=== PATIENT | female | born 1995 | race Caucasian/White ===

== ENCOUNTER 2021-11-27 18:28 | Inpatient (IN) | payer BC ==
[~2021-11-27 18:28] MED LIST: Bupivacaine 0.25% HCL 30 ML VIAL ONE
[2021-11-27] MEDS ORDERED: Lidocaine 1% (PF) 30 ML VIAL SC PRN (18:50)
[2021-11-27] MEDS ORDERED: HYDROcodone/Acetaminophen 5/325 mg Tablet PO PRN ×2 (18:50)
[2021-11-27] MEDS ORDERED: Butorphanol Tartrate 1 MG/ML VIAL SLOW IVP PRN (18:50)
[2021-11-27] MEDS ORDERED: Ondansetron PF 4 MG/2 ML Vial IVP PRN (18:50)
[2021-11-27] MEDS ORDERED: Diphenoxylate HCl/Atropine Tablet PO PRN ×2 (18:50)
[2021-11-27] MEDS ORDERED: Promethazine HCl 25 MG/ML VIAL IM PRN (18:50)
[2021-11-27] MEDS ORDERED: Acetaminophen 500 MG TAB PO PRN (18:50)
[2021-11-27] MEDS ORDERED: Misoprostol 200 MCG TAB PR PRN (18:50)
[2021-11-27] MEDS ORDERED: hydrALAZINE 20 MG/ML VIAL SLOW IVP PRN (18:50)
[2021-11-27] MEDS ORDERED: Ibuprofen 800 MG TAB PO PRN (18:50)
[2021-11-27] MEDS ORDERED: Labetalol HCl 100 MG/20 ML VIAL SLOW IVP PRN (18:54)
[2021-11-27] MEDS ORDERED: Calcium Gluc 4.6 MEQ/10 ML (100 MG/ML) SLOW IVP PRN (18:54)
[2021-11-27] MEDS ORDERED: Lorazepam 2 MG/ML VIAL SLOW IVP PRN (18:54)
[2021-11-27] MEDS ORDERED: NS w/ Oxytocin 30 units 500 ML IV SCH ×2 (19:00)
[2021-11-27 19:46] LABS: Hemoglobin 10.3 g/dL (12.0-15.5); Mean Corpuscular HGB CONC 34.7 g/dL (32.0-36.0); Mean Corpuscular Hemoglobin 30.2 pg (27.0-33.0); Mean Corpuscular Volume 87.1 fl (81.6-98.3); Mean Platelet Volume 10.8 fl (7.4-10.4); Platelet Count 225 10x3/uL (150-450); RBC Distribution Width 12.6 % (11.5-14.5); Red Blood Cell (RBC) Count 3.41 10x6/uL (3.90-5.03); White Blood Cell (WBC) Count 9.3 10x3/uL (3.5-10.5)
[2021-11-27 19:53] VITALS: BMI 35.3
[2021-11-27] MEDS ORDERED: Misoprostol 100 MCG TAB ONE ×2 (19:54→23:11)
[2021-11-27 20:18] LABS: Syphilis Antibody Nonreactive (Nonreactive); Syphilis Antibody Index 0.08 S/CO (<1.00 Non-Reactive)
[2021-11-27 20:19] LABS: HBSAg Index 0.21 S/CO (0-0.99); HIV (1/2) Antibody/Antigen Non-Reactive (NonReactive); HIV 1/2 INDEX 0.06 S/CO (<1.00); Hep B Surf Ag Non-Reactive S/CO (NonReactive)
[2021-11-27 21:12] LABS: SARS-CoV-2 NAA Rapid Test Not Detected (NotDetected)
[2021-11-28] MEDS ORDERED: Fentanyl 2 mcg/Bup 0.1% Cadd 100 ML ONE (08:32)
[2021-11-28] MEDS ORDERED: Ondansetron PF 4 MG/2 ML Vial IVP PRN (09:33)
[2021-11-28] MEDS ORDERED: ePHEDrine Sulfate 50 MG/10 ML VIAL SLOW IVP PRN (09:33)
[2021-11-28] MEDS ORDERED: diphenhydrAMINE 50 MG/ML VIAL IVP PRN (09:33)
[2021-11-28] MEDS ORDERED: Promethazine HCl 25 MG/ML VIAL IM PRN (09:33)
[2021-11-28] MEDS ORDERED: Moisturizing Cream (Eucerin) 113 GM JAR TOP PRN (09:33)
[2021-11-28] MEDS ORDERED: Naloxone HCl 0.4 mg/ml Vial IVP PRN ×2 (09:33)
[2021-11-28] MEDS ORDERED: Acetaminophen 325 MG TAB PO PRN (09:33)
[2021-11-28] MEDS ORDERED: Lactated Ringer's 500 ML IV PRN (09:43)
[2021-11-28] MEDS ORDERED: Communication Order-Pharmacy FS SCH (09:45)
[2021-11-28] MEDS: Labetalol HCl 200 MG TAB PO SCH ×3 (10:05→21:12)
[2021-11-28] MEDS: Lactated Ringer's 1,000 ML IV SCH (15:10)
[2021-11-28] MEDS: Misoprostol 100 MCG TAB VAG SCH ×4 (15:10→15:45)
[2021-11-28] MEDS: Fentanyl 2 mcg/Bupivacaine 0.1% Cassette 100 ML EPIDURAL SCH ×2 (15:58→19:45)
[2021-11-29] MEDS ORDERED: Lidocaine 1% PF 10 ML AMP ONE ×2 (00:15→02:35)
[2021-11-29] MEDS ORDERED: Carboprost 250 MCG/ML AMP ONE (00:15)
[2021-11-29] MEDS ORDERED: Misoprostol 200 MCG TAB ONE (00:16)
[2021-11-29] MEDS ORDERED: Ampicillin 2 GM VIAL ONE (00:32)
[2021-11-29] MEDS ORDERED: Ampicillin 2 GM in Sodium Chloride 0.9% 100 ML IVPB SCH (00:45)
[2021-11-29] MEDS: Fentanyl 2 mcg/Bupivacaine 0.1% Cassette 100 ML EPIDURAL SCH (00:55)
[2021-11-29] MEDS ORDERED: Zolpidem Tartrate 5 MG TAB PO PRN (03:15)
[2021-11-29] MEDS ORDERED: Bisacodyl 10 MG SUPP PR PRN (03:15)
[2021-11-29] MEDS ORDERED: Boostrix 0.5 ML (Tdap) VIAL IM ONE (03:15)
[2021-11-29] MEDS ORDERED: NS w/ Oxytocin 30 units 500 ML IV SCH (03:15)
[2021-11-29] MEDS ORDERED: Benzocaine-Menthol 82.5 ML CAN TOP PRN (03:15)
[2021-11-29] MEDS ORDERED: Milk Of Magnesia 30 ML UDCUP PO PRN (03:15)
[2021-11-29] MEDS ORDERED: Lanolin Ointment 7 GM TUBE TOP PRN (03:15)
[2021-11-29] MEDS ORDERED: hydrALAZINE 20 MG/ML VIAL SLOW IVP PRN (03:15)
[2021-11-29] MEDS ORDERED: Misoprostol 200 MCG TAB VAG PRN (03:15)
[2021-11-29] MEDS ORDERED: Ondansetron PF 4 MG/2 ML Vial IVP PRN (03:15)
[2021-11-29] MEDS ORDERED: Preparation H Ointment 28 GM TUBE PR PRN (03:15)
[2021-11-29] MEDS: Ibuprofen 800 MG TAB PO SCH ×3 (05:57→21:55)
[2021-11-29] MEDS: Ferrous Sulfate 325 MG TAB PO SCH ×2 (08:16→18:14)
[2021-11-29] MEDS: Prenatal Vitamin 1 TAB PO SCH (08:38)
[2021-11-29] MEDS: Labetalol HCl 200 MG TAB PO SCH ×2 (08:38→21:55)
[2021-11-29] MEDS: Ampicillin/Sulbactam 3 GM in Sodium Chloride 0.9% 100 ML IVPB SCH ×3 (08:38→21:55)
[2021-11-29] MEDS: Docusate 100 MG CAP PO SCH ×2 (08:38→21:55)
[2021-11-29] MEDS: traMADol HCl 50 MG TAB PO PRN ×2 (12:18→21:55)
[2021-11-29] MEDS: Lactated Ringer's 1,000 ML IV SCH (18:14)
[2021-11-29] MEDS: Misoprostol 100 MCG TAB VAG SCH (19:22)
[2021-11-29] MEDS ORDERED: traMADol HCl 50 MG TAB PO SCH (21:45)
[2021-11-30] MEDS: Ampicillin/Sulbactam 3 GM in Sodium Chloride 0.9% 100 ML IVPB SCH ×4 (02:27→21:33)
[2021-11-30] MEDS: Ibuprofen 800 MG TAB PO SCH ×3 (04:35→21:33)
[2021-11-30] MEDS: traMADol HCl 50 MG TAB PO PRN (09:13)
[2021-11-30] MEDS: Labetalol HCl 200 MG TAB PO SCH ×2 (09:14→21:41)
[2021-11-30] MEDS: Prenatal Vitamin 1 TAB PO SCH (09:15)
[2021-11-30] MEDS: Docusate 100 MG CAP PO SCH ×2 (09:15→21:33)
[2021-11-30] MEDS ORDERED: Acetaminophen 325 MG TAB PO PRN (13:48)
[2021-11-30] MEDS: Ferrous Sulfate 325 MG TAB PO SCH ×2 (13:58→18:15)
[2021-11-30] MEDS: diphenhydrAMINE 25 MG CAP PO PRN (20:02)
[2021-12-01] MEDS: Ampicillin/Sulbactam 3 GM in Sodium Chloride 0.9% 100 ML IVPB SCH ×2 (03:38→08:05)
[2021-12-01] MEDS: Ibuprofen 800 MG TAB PO SCH ×2 (06:11→13:17)
[2021-12-01] MEDS: Ferrous Sulfate 325 MG TAB PO SCH ×2 (08:03→18:00)
[2021-12-01] MEDS: Docusate 100 MG CAP PO SCH (08:05)
[2021-12-01] MEDS: Labetalol HCl 200 MG TAB PO SCH (08:05)
[2021-12-01] MEDS: Prenatal Vitamin 1 TAB PO SCH (08:05)
[2021-12-01] MEDS: diphenhydrAMINE 25 MG CAP PO PRN (08:18)
[2021-12-01 12:09] VITALS: BP 139/88; TEMP 97.8
== END 2021-12-01 19:02 | disposition home or self-care (01) | DRG 807 ==
LOC: CSHLD 18:28 → CSHPP 11-29 04:52
PROVIDERS: ADMIT Obstetrics & Gynecology; ATTEND Obstetrics & Gynecology
PROC: 10D07Z6 Extraction of Products of Conception, Vacuum, Via Natural or Artificial Opening (ICD-10-PCS; principal; 2021-11-29)
PROC: 3E0P7VZ Introduction of Hormone into Female Reproductive, Via Natural or Artificial Opening (ICD-10-PCS; 2021-11-29)
PROC: 0W8NXZZ Division of Female Perineum, External Approach (ICD-10-PCS; 2021-11-29)
PROC: 3E033VJ Introduction of Other Hormone into Peripheral Vein, Percutaneous Approach (ICD-10-PCS; 2021-11-29)
DX: O13.4 Gestational [pregnancy-induced] hypertension without significant proteinuria, complicating childbirth (principal); Z37.0 Single live birth; O24.429 Gestational diabetes mellitus in childbirth, unspecified control; Z20.822 Contact with and (suspected) exposure to COVID-19; Z3A.37 37 weeks gestation of pregnancy; O99.284 Endocrine, nutritional and metabolic diseases complicating childbirth; F32.A Depression, unspecified; O76 Abnormality in fetal heart rate and rhythm complicating labor and delivery; F41.9 Anxiety disorder, unspecified; O99.344 Other mental disorders complicating childbirth; O69.81X0 Labor and delivery complicated by cord around neck, without compression, not applicable or unspecified; E89.0 Postprocedural hypothyroidism; Z79.890 Hormone replacement therapy; Z79.899 Other long term (current) drug therapy; Z88.6 Allergy status to analgesic agent
CPT/HCPCS: 36415; 36416; 51702; 85027; 86780; 86850; 86900; 86901; 87340; 87389; J0290; J0295; J0595; J1200; J2405; J2590; J3490; S0020; U0002